=== PATIENT | male | born 1945 | race Caucasian/White ===

== ENCOUNTER 2018-12-24 21:03 | Emergency (ER) | payer OTHER, BC ==
[2018-12-24 21:06] VITALS: BMI 33.2
[2018-12-24] MEDS ORDERED: KETOROLAC TROMETHAMINE 60 MG/2 ML VIAL IM ONE (21:06)
--- NOTE | 2018-12-24 21:06 | PDOC ---
Rapid Medical Evaluation Time Seen by Provider: 12/24/18 21:04 Medical Evaluation: Allergies Allergy/AdvReac Type Severity Reaction Status Date / Time codeine [Codeine] Allergy Mild Hives Verified 10/24/14 22:53 iodine Allergy Mild Hives Verified 10/24/14 22:53 Penicillins Allergy Mild Hives Verified 10/24/14 22:53 12/24/18 21:04 HPI: Mid back pain since yesterday increasing pain with motion and coughing PE: No gross deficits ORDERS: Torodol Discharge Disposition - Diagnosis Upper back strain - Referrals - Patient Instructions - Post Discharge Activity
[2018-12-24] MEDS ORDERED: KETOROLAC TROMETHAMINE 30 MG/1 ML VIAL ONE (21:16)
--- NOTE | 2018-12-24 21:19 | PDOC ---
History of Present Illness - General Chief Complaint: Back Pain Stated Complaint: BODY PAIN Time Seen by Provider: 12/24/18 21:04 - History of Present Illness Initial Comments: 12/24/18 21:19 Mr. Villagran is a 73 yo male w/ pmh of HLD and enlarged prostate who presents for evaluation of R sided back pain since playing multiple rounds of golf this weekend. Patient reports he elected to come to ER as pain has not improved. Denies any other symptoms at this time. The patient denies chest pain, shortness of breath, headache and dizziness. Denies fever, chills, nausea, vomit, diarrhea and constipation. Denies dysuria, frequency, urgency and hematuria. Past History - Past Medical History Allergies/Adverse Reactions: Allergies Allergy/AdvReac Type Severity Reaction Status Date / Time codeine [Codeine] Allergy Mild Hives Verified 12/24/18 21:06 iodine Allergy Mild Hives Verified 12/24/18 21:06 Penicillins Allergy Mild Hives Verified 12/24/18 21:06 Home Medications: Ambulatory Orders Ezetimibe [Zetia -] 10 mg PO HS 11/20/11 Piroxicam [Feldene] 20 mg PO HS 11/20/11 Aspirin [Ecotrin] 81 mg PO HS 10/24/14 Tramadol HCl/Acetaminophen [Tramadol-Acetaminophn 37.5-325] 1 each PO BID PRN # 12 tablet MDD 2 12/25/18 COPD: No Hypercholesterolemia: Yes - Surgical History Neurologic Surgery: Yes (BACK) - Immunization History Immunization Up to Date: Yes - Psycho Social/Smoking Cessation Hx Smoking Status: No Smoking History: Never smoked Number of Cigarettes Smoked Daily: 0 Hx Alcohol Use: No Review of Systems - Review of Systems Comments:: 12/24/18 21:59 GENERAL/CONSTITUTIONAL: No fever or chills. No weakness. HEAD, EYES, EARS, NOSE AND THROAT: No change in vision. No ear pain or discharge. No sore throat. CARDIOVASCULAR: No chest pain or shortness of breath RESPIRATORY: No cough, wheezing, or hemoptysis. GASTROINTESTINAL: No nausea, vomiting, diarrhea or constipation. GENITOURINARY: No dysuria, frequency, or change in urination. MUSCULOSKELETAL: +Right sided lower back pain as described. SKIN: No rash NEUROLOGIC: No headache, vertigo, loss of consciousness, or change in strength/ sensation. ENDOCRINE: No increased thirst. No abnormal weight change HEMATOLOGIC/LYMPHATIC: No anemia, easy bleeding, or history of blood clots. ALLERGIC/IMMUNOLOGIC: No hives or skin allergy. *Physical Exam - Vital Signs Last Vital Signs Temp Pulse Resp BP Pulse Ox 98.4 F 88 18 139/86 95 12/24/18 21:04 12/24/18 21:04 12/24/18 21:04 12/24/18 21:04 12/24/18 21:04 - Physical Exam Comments: 12/24/18 21:59 GENERAL: Awake, alert, and fully oriented, in no acute distress HEAD: No signs of trauma, normocephalic, atraumatic EYES: PERRLA, EOMI, sclera anicteric, conjunctiva clear ENT: Auricles normal inspection, hearing grossly normal, nares patent, oropharynx clear without exudates. Moist mucosa NECK: Normal ROM, supple, no lymphadenopathy, JVD, or masses LUNGS: No distress, speaks full sentences, clear to auscultation bilaterally HEART: Regular rate and rhythm, normal S1 and S2, no murmurs, rubs or gallops, peripheral pulses normal and equal bilaterally. ABDOMEN: Soft, nontender, normoactive bowel sounds. No guarding, no rebound. No masses EXTREMITIES: +TTP in distribution described. Otherwise normal inspection, normal range of motion, no edema. No clubbing or cyanosis. NEUROLOGICAL: Cranial nerves II through XII grossly intact. Normal speech, normal gait, no focal sensorimotor deficits SKIN: Warm, Dry, normal turgor, no rashes or lesions noted. 12/24/18 22:00 Medical Decision Making - Medical Decision Making 12/25/18 00:20 Mr. Villagran is a 73 yo male w/ pmh as described who presents for evaluation of symptom of MSK pain vs. compression fracture vs. other intrabdominal etiology. Patient evaluated with CT lumbar spine and CT abd/pelvis w/ no concerning findings. Suspect MSK etiology of pain. Patient pain improved following IM toradol. Home Rx sent for further treatment. Discharging to home for further outpatient evaluation as needed. Discharge - Discharge Information Problems reviewed: Yes Clinical Impression/Diagnosis: Upper back strain Qualifiers: Encounter type: initial encounter Qualified Code(s): S29.012A - Strain of muscle and tendon of back wall of thorax, initial encounter Disposition: HOME - Additional Discharge Information Prescriptions: Tramadol HCl/Acetaminophen [Tramadol-Acetaminophn 37.5-325] 1 each PO BID PRN # 12 tablet MDD 2 PRN Reason: Pain - Follow up/Referral - Patient Discharge Instructions Additional Instructions: You were evaluated today in the ER for your pain. We performed CT scan of your abdomen and pelvis as well as spine with no concerning findings and believe you are safe for discharge. We also sent a proscription to your pharmacy for further pain control. Please take all medications as proscribed. Follow-up with primary care provider later this week for further evaluation. Return to ER if any further pain, fever, chills, or other concerning symptoms. - Post Discharge Activity
--- NOTE | 2018-12-24 21:45 | PDOC ---
Attending Attestation - Resident Resident Name: Anai Weber - ED Attending Attestation I have performed the following: I have examined & evaluated the patient, The case was reviewed & discussed with the resident, I agree w/resident's findings & plan - HPI HPI: 12/25/18 00:55 see resident hpi - Physicial Exam PE: 12/25/18 00:55 agree with resident exam - Medical Decision Making 12/25/18 00:56 73 yo male with low back pain after playing golf ct a/p shows normal sized aorta, no fracture will d/c with tramadol pt states he has taken it before for shoulder pain without issue
[2018-12-25 01:34] VITALS: BP 132/68; PULSE 74; TEMP 98.2
== END 2018-12-25 00:32 | disposition home or self-care (01) ==
LOC: JER 21:03
PROC: 3E0233Z Introduction of Anti-inflammatory into Muscle, Percutaneous Approach (ICD-10-PCS; principal; 2018-12-24)
DX: S29.012A Strain of muscle and tendon of back wall of thorax, initial encounter (principal); X50.9XXA Other and unspecified overexertion or strenuous movements or postures, initial encounter; Y93.53 Activity, golf; Y92.39 Other specified sports and athletic area as the place of occurrence of the external cause; Y99.8 Other external cause status; E78.00 Pure hypercholesterolemia, unspecified; Z88.5 Allergy status to narcotic agent; Z88.0 Allergy status to penicillin; Z88.8 Allergy status to other drugs, medicaments and biological substances
CPT/HCPCS: 72131-TC; 74176-TC; 99282-25

== ENCOUNTER 2021-05-12 14:48 | Emergency (ER) | payer OTHER, BC ==
[2021-05-12 14:54] VITALS: BP 137/69; PULSE 64; TEMP 98.5; BMI 32.8
[2021-05-12] MEDS ORDERED: ACETAMINOPHEN 325 MG TABLET (FP) PO ONE (15:04)
[2021-05-12] MEDS ORDERED: ACETAMINOPHEN 325 MG TABLET (FP) ONE (15:36)
[2021-05-12 16:00] LABS: ALBUMIN 3.9 g/dl (3.4-5.0); BILIRUBIN,TOTAL 0.7 mg/dl (0.2-1); CALCIUM 9.3 mg/dl (8.5-10); TOT PROT 6.6 g/dl (6.4-8.2)
[2021-05-12 16:11] LABS: HEMATOCRIT 37.5 % (35.4-49); HEMOGLOBIN 12.8 GM/dL (11.7-16.9); MCH 31.5 pg (25.7-33.7); MCHC 34.3 g/dl (32.0-35.9); MEAN CELL VOLUME 91.8 fl (80-96); MEAN PLT VOLUME 7.7 fl (7.5-11.1); PLATELET COUNT 247 10^3/uL (134-434); RBC 4.08 M/mm3 (4.00-5.60); RDW 14.7 % (11.9-15.9); WHITE BLOOD COUNT 4.9 K/mm3 (4.0-10.0)
== END 2021-05-12 16:53 | disposition home or self-care (01) ==
LOC: FER 14:48
DX: S09.90XA Unspecified injury of head, initial encounter (principal); F07.81 Postconcussional syndrome; W00.0XXA Fall on same level due to ice and snow, initial encounter
CPT/HCPCS: 36415; 70450-TC; 80053; 85027; 93005; 99285-25

== ENCOUNTER 2023-06-14 09:49 | Emergency (ER) | payer OTHER, BC ==
[2023-06-14 10:17] VITALS: BP 160/90; PULSE 96; RESP 20; TEMP 97.9; BMI 33.5
[2023-06-14] MEDS ORDERED: ACETAMINOPHEN 325 MG TABLET (FP) ONE (10:47)
[2023-06-14] MEDS ORDERED: KETOROLAC TROMETHAMINE 30 MG/1 ML VIAL ONE (10:47)
[2023-06-14] MEDS: ACETAMINOPHEN 325 MG TABLET (FP) PO ONE (10:52)
[2023-06-14] MEDS: KETOROLAC TROMETHAMINE 60 MG/2 ML VIAL IM ONE (10:54)
== END 2023-06-14 11:08 | disposition home or self-care (01) ==
LOC: FER 09:49
PROC: 3E0233Z Introduction of Anti-inflammatory into Muscle, Percutaneous Approach (ICD-10-PCS; principal; 2023-06-14)
DX: M54.2 Cervicalgia (principal); S16.1XXA Strain of muscle, fascia and tendon at neck level, initial encounter; W01.0XXA Fall on same level from slipping, tripping and stumbling without subsequent striking against object, initial encounter; Y93.01 Activity, walking, marching and hiking
CPT/HCPCS: 72125-TC; 99284-25